=== PATIENT | male | born 1985 | race Caucasian/White ===

== ENCOUNTER 2021-06-20 19:12 | Emergency (ER) | payer BC ==
[~2021-06-20] VITALS: Ht 170.2 cm; Wt 83.9 kg
[2021-06-20] MEDS ORDERED: PROTONIX20 MG (19:21)
[2021-06-20] MEDS ORDERED: ULTRAM50 MG PO (21:21)
== END 2021-06-20 21:42 | disposition home or self-care (01) ==
LOC: ER 19:12
DX: S43.035A Inferior dislocation of left humerus, initial encounter (principal); X50.0XXA Overexertion from strenuous movement or load, initial encounter; Y93.61 Activity, american tackle football; Y92.832 Beach as the place of occurrence of the external cause; Y99.8 Other external cause status